=== PATIENT | female | born 1990 | race Caucasian/White ===

== ENCOUNTER 2021-11-03 14:55 | Inpatient (IN) ==
[2021-11-03] MEDS ORDERED: OXYTOCIN 30 UNITS/500 ML BAG IV PRN (16:14)
[2021-11-03] MEDS ORDERED: DINOPROSTONE 10 MG INSERT PV ONE (16:14)
[2021-11-03 16:42] LABS: Hematocrit (blood only) 43.4 % (37-47); Hemoglobin 14.7 g/dL (12.0-16.0); Mean Corpuscular Hemoglobin 28.8 pg (25-34); Mean Corpuscular Hgb Conc 33.9 g/dL (32-36); Mean Corpuscular Volume 85.1 fL (80-100); Mean Platelet Volume 10.4 fL (7.4-10.4); Platelet Count 338 K/uL (130-400); RDW Coefficient of Variation 15.3 % (11.5-14.5); RDW Standard Deviation 47.9 fL (36.4-46.3); White Blood Count 15.86 K/uL (4.8-10.8)
[2021-11-03 17:01] LABS: Alanine Aminotransferase 16 (12-78); Albumin Level 2.8 gm/dl (3.4-5.0); Aspartate Aminotransferase 13 U/L (15-37); Blood Urea Nitrogen 8 mg/dl (7-18); Calcium 9.5 mg/dl (8.5-10.1); Carbon Dioxide 23 mmol/L (21-32); Chloride 109 mmol/L (98-107); Est GFR (African American) 137.4 ml/min; Est GFR (Non-African American) 118.5 ml/min; Glucose 87 mg/dl (70-99); Potassium 4.9 mmol/L (3.5-5.1); Sodium 137 mmol/L (136-145)
[2021-11-03 17:04] LABS: Albumin Globulin Ratio 0.6 (0.9-2); Alkaline Phosphatase 211 U/L (45-117); Globulin 4.3 gm/dl (2.5-4.0); Total Protein 7.1 gm/dl (6.4-8.2)
[2021-11-03] MEDS ORDERED: BUTORPHANOL TARTRATE 1 MG/ML VIAL IV PRN (18:30)
[2021-11-03] MEDS ORDERED: ONDANSETRON INJ 2 MG/ML 2 ML VIAL IV PRN (18:30)
--- NOTE | 2021-11-03 18:41 | History & Physical Report ---
Date of Service November 03, 2021 Assessment & Plan (1) Oligohydramnios in third trimester: Plan: 31-year-old G1, P0 at 40 weeks of gestation presenting from office with oligohydramnios, heart rate reassuring with category 1 strip, Blood pressures elevated, asymptomatic, blood work including platelets liver enzymes and creatinine were normal. GBS negative, Plan to admit, monitor, Cervidil for cervical ripening. Discussed what to expect during induction and plans to have epidural for pain. All questions were answered. Admission and Anticipated Discharge Date Admission Date: November 03, 2021 History of Present Illness Chief Complaint: Oligohydramnios Primary Care Provider: NO PCP Patient is a 31-year-old G1, P0 at 14 weeks who was sent from office due to incidental finding of oligohydramnios by ultrasound. MEHUL was 2.6 cm. Patient denies leakage, trickling of fluids, contractions, vaginal bleeding. She reports good movements. Her has been complicated by, 1. Class I obesity, on low-dose aspirin, 2. Family history of Down syndrome, 3. Family history of congenital heart defect, her sister, 4. Rubella nonimmune, 5. History of genital herpes, last outbreak was over a year ago before this , she has been on Valtrex since 36 weeks. She denies itching, burning, blisters or lesions in the vulva or vagina., 6. Antepartum anemia, on iron #7 abnormal chromosomal test, Q CFF DNA was low risk for trisomy 18, trisomy 13 and sex chromosome abnormalities. 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 Patient has seen [facility] for this and recommended MicroArray testing and patient declined due to insurance not covering. Blood pressures are slightly elevated, patient denies headaches, change in vision, nausea vomiting, epigastric or right upper quadrant pain. Urine showed trace protein and platelets and liver enzymes were within normal limits. 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 See HPI for genital herpes Review of Systems as per Subjective / HPI Physical Exam Constitutional: well developed and well nourished Patient is comfortable not in acute distress Gastrointestinal (Abdomen): normal bowel sounds, soft, nontender, no hepatosplenomegaly Inspection/Auscultation: + abdomen distended Genitourinary: normal external appearance (No lesions suggesting herpes) OB Exam Abdomen: + vertex Manual OB Exam: + cervical dilation 1 cm (1 to 2 cm), + cervical effacement 70% and + station -2 OB Exam Monitor Tracing: + external uterine monitor used and + category I Cervidil is placed in posterior fornix Results & Data ([facility]) Vital Signs (Past 12 Hours) Vital Signs Temp Resp 11/03/21 17:26 36.9 C 20 Laboratory Results Lab Results 11/03/21 11/03/21 11/03/21 Range/Units 16:25 16:25 16:25 WBC 15.86 H (4.8-10.8) K/uL RBC 5.10 (4.2-5.4) M/uL Hgb 14.7 (12.0-16.0) g/dL Hct 43.4 (37-47) % MCV 85.1 (80-100) fL MCH 28.8 (25-34) pg MCHC 33.9 (32-36) g/dL RDW Std Deviation 47.9 H (36.4-46.3) fL RDW Coeff of Liyah 15.3 H (11.5-14.5) % Plt Count 338 (130-400) K/uL MPV 10.4 (7.4-10.4) fL Sodium 137 (136-145) mmol/L Potassium 4.9 (3.5-5.1) mmol/L Chloride 109 H (98-107) mmol/L Carbon Dioxide 23 (21-32) mmol/L Anion Gap 5.0 (3-11) BUN 8 (7-18) mg/dl Creatinine 0.66 (0.6-1.2) mg/dl Est Cr Clr Drug Dosing Not Reportable Est GFR ( Amer) 137.4 ml/min Est GFR (Non-Af Amer) 118.5 ml/min BUN/Creatinine Ratio 12.0 (10-20) Glucose 87 (70-99) mg/dl Calcium 9.5 (8.5-10.1) mg/dl AST 13 L (15-37) U/L ALT 16 (12-78) Alkaline Phosphatase 211 H (45-117) U/L Total Protein 7.1 (6.4-8.2) gm/dl Albumin 2.8 L (3.4-5.0) gm/dl Globulin 4.3 H (2.5-4.0) gm/dl Albumin/Globulin Ratio 0.6 L (0.9-2) SARS-CoV-2, RNA, NAAT NEGATIVE (NEGATIVE)
[2021-11-03 18:43] LABS: Bilirubin,Total 0.3 mg/dl (0.2-1)
[2021-11-03] MEDS ORDERED: PATIENT'S ALLERGY INFO NEEDS ENTERED SCH (18:45)
[2021-11-04] MEDS: LACTATED RINGER'S 1,000 ML IV PRN ×4 (00:26→22:30)
[2021-11-04] MEDS ORDERED: LABETALOL HCL 100 MG TAB PO ONE (00:42)
--- NOTE | 2021-11-04 00:51 | Obstetrical Progress Note ---
Date of Service November 04, 2021 Assessment & Plan Admission and Anticipated Discharge Date Admission Date: November 03, 2021 Subjective Patient is really evaluated. She has been feeling contractions every 3 to 5 minutes. They have been getting painful. Pain level is 6-7 out of 10. No leakage of fluid or vaginal bleeding. She reports good movements. Her blood pressures have been elevated, asymptomatic. Labs are within normal limits. heart rate category 1, toco with contractions every 3 to 5 minutes. We will start labetalol p.o. and Stadol for pain and continue to monitor closely. Results & Data ([facility]) Vital Signs (Past 12 Hours) Vital Signs Temp Pulse Resp BP 11/03/21 23:02 36.8 C 106 H 16 140/87 11/03/21 23:01 106 H 152/103 H 11/03/21 20:17 95 H 139/93 11/03/21 20:02 115 H 136/101 H 11/03/21 19:47 118 H 149/83 H 11/03/21 19:31 120 H 136/85 11/03/21 19:16 114 H 164/96 H 11/03/21 19:02 36.8 C 107 H 18 152/89 H 11/03/21 18:34 109 H 141/91 H 11/03/21 17:26 36.9 C 20
[2021-11-04] MEDS ORDERED: LABETALOL HCL 100 MG TAB PO SCH (09:00)
[2021-11-04] MEDS: miSOPROStoL 25 MCG TAB SL SCH ×4 (10:38→21:06)
--- NOTE | 2021-11-04 14:39 | Labor Progress Brief Note ---
Date of Service November 04, 2021 Subjective Patient doing well. Pain has been controlled. No other complaints at this time Constitutional: as per Subjective / HPI Assessment & Plan (1) Oligohydramnios in third trimester: Plan: Continue misoprostol 25 mcg SL q4hrs AROM and pit when >3cm Epidural if patient requests Anticipate (2) Gestational [-induced] hypertension without significant proteinuria, complicating childbirth: Plan: Based on elevated BP >4 hrs apart Non severe P:U ratio and CMP ordered Admission and Anticipated Discharge Date Admission Date: November 03, 2021 Physical Exam Physical Exam: FHT: baseline 125-130, mod variability, positive accelerations, no decelerations, category 1 tracing Tocometer: Contractions every 6 to 7 minutes Cervix: 2/60/-3 cephalic Results & Data ([facility]) Vital Signs (Past 12 Hours) Vital Signs Temp Pulse Resp BP 11/04/21 14:11 36.9 C 98 H 20 148/84 H 11/04/21 12:11 108 H 138/86 11/04/21 10:03 105 H 134/90 11/04/21 07:19 36.1 C L 99 H 20 133/94 11/04/21 04:08 36.5 C 100 H 16 136/78
[2021-11-04 15:24] LABS: Alanine Aminotransferase 19 (12-78); Albumin Level 2.5 gm/dl (3.4-5.0); Aspartate Aminotransferase 12 U/L (15-37); BUN Creatinine Ratio 12.2 (10-20); Blood Urea Nitrogen 8 mg/dl (7-18); Calcium 9.3 mg/dl (8.5-10.1); Carbon Dioxide 20 mmol/L (21-32); Chloride 109 mmol/L (98-107); Est GFR (African American) 140.2 ml/min; Glucose 141 mg/dl (70-99); Potassium 4.3 mmol/L (3.5-5.1); Sodium 138 mmol/L (136-145)
[2021-11-04 15:27] LABS: Albumin Globulin Ratio 0.6 (0.9-2); Alkaline Phosphatase 192 U/L (45-117); Bilirubin,Total 0.3 mg/dl (0.2-1); Globulin 4.3 gm/dl (2.5-4.0); Total Protein 6.8 gm/dl (6.4-8.2)
[2021-11-04] MEDS ORDERED: Nursing to Pharmacy Communication SCH (16:15)
[2021-11-04] MEDS ORDERED: ePHEDrine sulfate 50 MG/ML AMP ONE (19:29)
[2021-11-04] MEDS ORDERED: fentaNYL citrate 100 MCG/2 ML VIAL ONE (19:29)
[2021-11-04] MEDS ORDERED: SODIUM CHLORIDE 0.9% INJ 10 ML VIAL ONE (19:29)
[2021-11-04] MEDS ORDERED: BUPIVACAINE 0.25% 30 ML VIAL ONE (19:29)
[2021-11-04] MEDS ORDERED: fentaNYL 2MCG/ML ROPIVACAINE 1.25MG/ML 100 ML BAG EPI ONE (19:30)
[2021-11-04] MEDS ORDERED: ONDANSETRON INJ 2 MG/ML 2 ML VIAL IV PRN (19:39)
[2021-11-04] MEDS ORDERED: NALBUPHINE HCL INJ 10 MG/ML AMP IV PRN (19:39)
[2021-11-04] MEDS ORDERED: fentaNYL 2MCG/ML ROPIVACAINE 1.25MG/ML 100 ML BAG EPI PRN (19:39)
[2021-11-04] MEDS ORDERED: diphenhydrAMINE 50 MG/ML VIAL IV PRN (19:39)
[2021-11-04] MEDS ORDERED: ePHEDrine sulfate 50 MG/ML AMP IV PRN (19:39)
[2021-11-04] MEDS ORDERED: NALOXONE HCL 0.4 MG/1 ML VIAL/CARP IV PRN (19:39)
[2021-11-04] MEDS ORDERED: NALOXONE HCL 1 MG in SODIUM CHLORIDE 0.9% 1000ML 1,000 ML IV PRN (19:39)
--- NOTE | 2021-11-04 19:47 | Anesthesiology Consultation ---
Date of Service November 04, 2021 Assessment & Plan Chart Review Chart Review: Patient NOT seen in Pre Admission Testing and Acceptable Risk for Labor Epidural Consults Requested none ASA ASA2 Proposed Anesthesia Anesthesia Type: Labor Epidural and CSE Risk / Benefits Reviewed With: PT / POA / Parent / Guardian, Accepts Plan and Informed Consent Obtained History Height/Weight Weight: 85.729 kg Allergies Allergy/AdvReac Type Severity Reaction Status Date / Time penicillin G Allergy Intermediate Rash Verified 11/04/21 07:16 walnut Allergy Intermediate Rash Verified 11/04/21 07:16 Medications Home Medications Medication Instructions Recorded Confirmed Last Taken aspirin 81 mg tablet 81 mg PO DAILY 11/03/21 11/03/21 11/02/21 22:00 ferrous sulfate 325 mg (65 mg 325 mg PO DAILY 11/03/21 11/03/21 11/02/21 22:00 iron) tablet (Iron (ferrous sulfate)) prenat.vits,montrell,[id number]-[id number] 1 tab PO DAILY 11/03/21 11/03/21 11/02/21 22:00 valacyclovir 500 mg tablet 500 mg PO DAILY 11/03/21 11/03/21 11/02/21 22:00 (Valtrex) Active Medications Generic Name Dose Route Start Last Admin Trade Name Freq PRN Reason Stop Dose Admin Butorphanol Tartrate 1 mg 11/03/21 18:30 11/04/21 00:25 Butorphanol Tartrate 1 Mg/Ml Vial IV 12/03/21 18:29 1 mg Q3HWA PRN Administration Pain Lactated Ringer's 1,000 mls @ 125 mls/hr 11/03/21 16:14 11/04/21 19:27 Lr IV 11/05/21 16:13 999 mls/hr .Q8H PRN Infusion L&D Protocol Protocol Misoprostol 25 mcg 11/04/21 19:00 11/04/21 19:35 Misoprostol 25 Mcg Tab SL 12/04/21 07:59 Not Given Q4H FAITH NPO Date Last Intake of Fluids: 11/04/21 Time Last Intake of Fluids: 17:00 Date Last Intake of Solids: 11/04/21 Time Last Intake of Solids: 14:00 Exercise / Class Metabolic Activity II 4-5 Yardwork/Stairs/Walk up hill Past Anesthesia History No Hx of Anesthesia Complications and No Family Hx of Anesthesia Complications History of PONV No Hx of PONV and No Hx of Motion Sickness Social History Smoking Status: Former smoker Hx Alcohol Use: No Hx Substance Use: No substance use type: does not use Last Used Substance: Unknown Review of Systems no chest pain or sob Physical Exam Vital Signs Last Vital Signs Temp 36.5 C 11/04/21 19:10 Pulse 112 H 11/04/21 19:44 Resp 20 11/04/21 19:10 BP 150/94 H 11/04/21 19:09 Pulse Ox 99 11/04/21 19:44 ENMT Mouth: no TMJ abnormality Thyromental Distance: > or= 3.5 Finger Breadths Mallampati Class: II Neck normal visual inspection Respiratory normal respiratory effort Auscultation: lungs clear to auscultation bilaterally Cardiovascular Rate/Rhythm: regular rate and regular rhythm Musculoskeletal Spine: normal cervical ROM Neurologic moves all extremities Psychiatric Orientation: alert and oriented x 3 Testing Laboratory Results 11/03/21 16:25 11/04/21 14:56
[2021-11-05] MEDS ORDERED: OXYTOCIN 30 UNITS/500 ML BAG IV PRN ×3 (01:28→12:06)
[2021-11-05] MEDS: miSOPROStoL 25 MCG TAB SL SCH ×4 (01:29→18:32)
--- NOTE | 2021-11-05 06:30 | Labor Progress Brief Note ---
Date of Service November 05, 2021 Subjective Patient doing well. Pain well controlled on epidural. No other complaints at this time Constitutional: as per Subjective / HPI Assessment & Plan (1) Oligohydramnios in third trimester: Plan: Cotinue oxytocin for augenatation Anticipate (2) Gestational [-induced] hypertension without significant proteinuria, complicating childbirth: Plan: Based on elevated BP >4 hrs apart Non severe BP If severe with treat and start mag Admission and Anticipated Discharge Date Admission Date: November 03, 2021 Physical Exam Physical Exam: FHT: baseline 155, mod variability, positive accelerations, no decelerations, category 1 tracing Tocometer: q 2 min pit at 6 units Cervix: 3/70/-2 AROM with scant blood tinged fluid, IUPC placed. No cord felt Results & Data ([facility]) Vital Signs (Past 12 Hours) Vital Signs Temp Pulse Resp BP Pulse Ox 11/05/21 06:24 105 H 97 11/05/21 06:19 112 H 96 11/05/21 06:16 102 H 127/75 11/05/21 06:14 120 H 98 11/05/21 06:09 108 H 96 11/05/21 06:04 98 H 96 11/05/21 06:00 108 H 18 125/75 11/05/21 05:59 106 H 96 11/05/21 05:54 97 H 95 11/05/21 05:49 105 H 96 11/05/21 05:46 95 H 116/60 11/05/21 05:44 92 H 95 11/05/21 05:39 103 H 97 11/05/21 05:34 90 95 11/05/21 05:30 92 H 18 118/60 11/05/21 05:29 90 95 11/05/21 05:24 90 95 11/05/21 05:19 91 H 95 11/05/21 05:15 89 119/59 L 11/05/21 05:14 90 95 11/05/21 05:09 100 H 95 11/05/21 05:04 95 H 95 11/05/21 05:00 98 H 18 115/57 L 11/05/21 04:59 94 H 95 11/05/21 04:54 93 H 97 11/05/21 04:49 104 H 95 11/05/21 04:46 95 H 115/61 11/05/21 04:44 98 H 94 11/05/21 04:39 102 H 95 11/05/21 04:34 102 H 94 11/05/21 04:30 93 H 18 122/57 L 11/05/21 04:29 97 H 94 11/05/21 04:24 96 H 95 11/05/21 04:19 96 H 95 11/05/21 04:15 97 H 116/60 11/05/21 04:14 93 H 95 11/05/21 04:09 100 H 95 11/05/21 04:04 100 H 95 11/05/21 04:00 117 H 18 131/72 11/05/21 03:59 99 H 95 11/05/21 03:54 95 H 95 11/05/21 03:49 95 H 95 11/05/21 03:45 94 H 130/59 L 11/05/21 03:44 96 H 95 11/05/21 03:39 99 H 95 11/05/21 03:34 100 H 95 11/05/21 03:30 93 H 129/68 11/05/21 03:29 104 H 97 11/05/21 03:24 99 H 94 11/05/21 03:19 101 H 93 11/05/21 03:15 101 H 119/67 11/05/21 03:14 97 H 95 11/05/21 03:09 102 H 96 11/05/21 03:04 99 H 96 11/05/21 03:01 100 H 132/78 11/05/21 02:59 109 H 96 11/05/21 02:54 114 H 98 11/05/21 02:49 109 H 97 11/05/21 02:46 107 H 140/70 11/05/21 02:44 122 H 97 11/05/21 02:39 128 H 97 11/05/21 02:34 124 H 97 11/05/21 02:31 120 H 120/72 11/05/21 02:30 36.8 C 18 11/05/21 02:29 103 H 97 11/05/21 02:24 95 H 95 11/05/21 02:19 96 H 94 11/05/21 02:16 110 H 118/65 11/05/21 02:14 97 H 95 11/05/21 02:09 99 H 95 11/05/21 02:04 98 H 95 11/05/21 02:00 100 H 18 114/61 11/05/21 01:59 100 H 95 11/05/21 01:54 98 H 95 11/05/21 01:49 100 H 94 11/05/21 01:45 100 H 119/69 11/05/21 01:44 105 H 96 11/05/21 01:39 113 H 96 11/05/21 01:34 113 H 95 11/05/21 01:30 121 H 18 124/73 11/05/21 01:29 118 H 97 11/05/21 01:24 122 H 97 11/05/21 01:19 106 H 95 11/05/21 01:16 97 H 118/59 L 11/05/21 01:14 101 H 95 11/05/21 01:09 98 H 95 11/05/21 01:04 108 H 95 11/05/21 01:00 109 H 18 116/57 L 11/05/21 00:59 105 H 93 11/05/21 00:54 104 H 95 11/05/21 00:49 100 H 94 11/05/21 00:45 107 H 109/55 L 11/05/21 00:44 103 H 94 11/05/21 00:39 108 H 95 11/05/21 00:34 108 H 94 11/05/21 00:30 95 H 18 116/59 L 11/05/21 00:29 99 H 95 11/05/21 00:24 101 H 95 11/05/21 00:19 110 H 95 11/05/21 00:15 100 H 118/66 11/05/21 00:14 111 H 96 11/05/21 00:09 115 H 95 11/05/21 00:04 120 H 95 11/05/21 00:00 113 H 18 115/69 11/04/21 23:59 111 H 95 11/04/21 23:54 107 H 96 11/04/21 23:49 120 H 96 11/04/21 23:45 110 H 124/72 11/04/21 23:44 130 H 95 11/04/21 23:39 133 H 95 11/04/21 23:35 127 H 94 11/04/21 23:34 131 H 96 11/04/21 23:31 114 H 139/92 11/04/21 23:30 18 11/04/21 23:29 122 H 96 11/04/21 23:28 126 H 94 11/04/21 23:24 131 H 95 11/04/21 23:20 36.8 C 11/04/21 23:19 145 H 96 11/04/21 23:14 147 H 97 11/04/21 23:09 123 H 97 11/04/21 23:04 127 H 95 11/04/21 23:00 126 H 18 153/75 H 11/04/21 22:59 131 H 95 11/04/21 22:54 116 H 96 11/04/21 22:49 110 H 95 11/04/21 22:45 122 H 138/73 11/04/21 22:44 124 H 95 11/04/21 22:39 118 H 95 11/04/21 22:34 117 H 95 11/04/21 22:32 114 H 94 11/04/21 22:30 136 H 18 147/81 H 11/04/21 22:29 111 H 95 11/04/21 22:26 115 H 94 11/04/21 22:24 110 H 95 11/04/21 22:20 108 H 94 11/04/21 22:19 118 H 95 11/04/21 22:15 118 H 142/77 H 11/04/21 22:14 124 H 95 11/04/21 22:09 116 H 96 11/04/21 22:04 113 H 94 11/04/21 22:01 110 H 94 11/04/21 22:00 115 H 18 133/80 11/04/21 21:59 114 H 96 11/04/21 21:56 111 H 94 11/04/21 21:54 111 H 95 11/04/21 21:50 106 H 94 11/04/21 21:49 114 H 95 11/04/21 21:45 115 H 132/80 11/04/21 21:44 111 H 96 11/04/21 21:42 112 H 93 11/04/21 21:39 107 H 95 11/04/21 21:34 108 H 95 11/04/21 21:30 108 H 18 143/86 H 11/04/21 21:29 114 H 97 11/04/21 21:24 111 H 97 11/04/21 21:19 122 H 98 11/04/21 21:15 127 H 145/98 H 11/04/21 21:14 122 H 99 11/04/21 21:09 113 H 99 11/04/21 21:04 114 H 100 11/04/21 21:00 100 H 18 137/88 11/04/21 20:59 92 H 99 11/04/21 20:54 93 H 98 11/04/21 20:49 127 H 99 11/04/21 20:45 90 125/83 11/04/21 20:44 98 H 97 11/04/21 20:39 94 H 98 11/04/21 20:37 103 H 91 11/04/21 20:34 101 H 98 11/04/21 20:30 101 H 18 128/79 11/04/21 20:29 99 H 97 11/04/21 20:24 96 H 98 11/04/21 20:19 110 H 99 11/04/21 20:14 115 H 139/80 98 11/04/21 20:12 114 H 149/94 H 11/04/21 20:10 108 H 144/82 H 11/04/21 20:09 108 H 157/94 H 99 11/04/21 20:06 103 H 152/96 H 11/04/21 20:04 100 H 152/97 H 99 11/04/21 20:02 106 H 169/104 H 11/04/21 20:00 102 H 168/106 H 11/04/21 19:59 116 H 97 11/04/21 19:54 116 H 98 11/04/21 19:49 105 H 99 11/04/21 19:44 112 H 99 11/04/21 19:39 113 H 100 11/04/21 19:10 36.5 C 20 11/04/21 19:09 90 150/94 H 11/04/21 19:08 103 H 167/107 H 11/04/21 19:06 36.5 C 100 H 18 172/103 H
[2021-11-05] MEDS: LACTATED RINGER'S 1,000 ML IV PRN (06:33)
[2021-11-05] MEDS ORDERED: SUPERCREAM 0.870% 15 GM JAR EXT PRN (12:06)
[2021-11-05] MEDS ORDERED: bisacodyL 10 MG SUPP PR PRN (12:06)
[2021-11-05] MEDS ORDERED: HYDROCORTISONE ACETATE 25 MG SUPP PR PRN (12:06)
[2021-11-05] MEDS ORDERED: BENZOCAINE 20% AER SPR 82.5 GM CAN EXT PRN (12:06)
[2021-11-05] MEDS ORDERED: ACETAMINOPHEN 325 MG TAB PO PRN (12:06)
--- NOTE | 2021-11-05 12:12 | Delivery Summary ---
Vaginal Delivery Summary Date of Service November 05, 2021 Vaginal Delivery Summary Delivery Note live femal over intact perineum with thick meconium suctioned after head delivered. Baby to nursery nurse. Apgars and weight pending. Cord obtained for ABG's followed by cord blood. Spontaneous delivery of meconium stained palcenta intact. No tears. EBL 200 ml. Final sponge and instrument count are correct. Mom stable and baby to nursery.
[2021-11-05 12:36] LABS: CO2 Cord Arterial Blood 73 mmHg (39.1-73.5); HCO3 Cord Arterial Blood 18 mmol/L (19.7-28.5); PO2 Cord Arterial Blood 26 mmHg (4.1-31.7)
[2021-11-05 12:45] LABS: Oxygen Sat Cord Arterial Blood < 60.0 % (<60)
[2021-11-05] MEDS: IBUPROFEN 600 MG TAB PO PRN ×2 (12:55→17:17)
--- NOTE | 2021-11-05 13:48 | Anesthesia Procedure Note ---
Date of Service November 05, 2021 Anesthesia Post Epidural Note Vital Signs Vital Signs: Temp Pulse Resp BP Pulse Ox 36.9 C 113 H 20 145/84 H 97 11/05/21 06:30 11/05/21 13:46 11/05/21 07:30 11/05/21 13:46 11/05/21 11:59 Pain Intensity Bilateral Abdomen: Pain Intensity: 8 Notes Mental Status: alert / awake / arousable Nausea / Vomiting: adequately controlled Pain: adequately controlled Airway Patency, RR, SpO2: stable & adequate BP & HR: stable & adequate Hydration State: stable & adequate Neuraxial Anesthesia: was administered and sensory block is resolving Anesthetic Complications: no major complications apparent and Pt Satisfied with anesthetic care Epidural: Removed without complications and With tip intact
[2021-11-05] MEDS ORDERED: Nursing to Pharmacy Communication SCH (18:45)
[2021-11-05] MEDS: DOCUSATE SODIUM 100 MG CAP PO SCH (20:33)
[2021-11-06] MEDS: IBUPROFEN 600 MG TAB PO PRN ×4 (01:50→23:16)
--- NOTE | 2021-11-06 07:17 | Obstetrical Progress Note ---
Date of Service November 06, 2021 Assessment & Plan (1) Gestational [-induced] hypertension without significant prote inuria, complicating childbirth: Based on elevated BP >4 hrs apart Non severe BP If severe with treat and start mag (2) Normal course: Continue routine PP care Anticipate d/c home tomorrow if doing well Subjective Ambulation: ambulating normally Voiding: no voiding problems Passing Gas:: Yes Diet Tolerance:: regular diet Lochia:: Moderate Feeding Type:: bottle feeding Current Pain Level(1-10): 2 Patient doing well, no complaints Constitutional: + as per Subjective / HPI Physical Exam Constitutional WD/WN, vitals as above Respiratory normal respiratory effort, lungs clear to auscultation Cardiovascular RRR, no murmur, no edema Gastrointestinal (Abdomen) normal bowel sounds, soft, nontender, no hepatosplenomegaly fundus below U Results & Data ([facility]) Vital Signs (Past 12 Hours) Vital Signs Temp Pulse Resp BP Pulse Ox 11/06/21 04:00 36.6 C 99 H 16 130/85 98 11/06/21 00:00 36.7 C 103 H 16 140/99 98 11/05/21 20:00 36.5 C 96 H 16 137/89 96
[2021-11-06 07:32] LABS: Hematocrit (blood only) 36.5 % (37-47); Hemoglobin 12.2 g/dL (12.0-16.0); Mean Corpuscular Hemoglobin 29.3 pg (25-34); Mean Corpuscular Hgb Conc 33.4 g/dL (32-36); Mean Corpuscular Volume 87.5 fL (80-100); Mean Platelet Volume 10.1 fL (7.4-10.4); Platelet Count 265 K/uL (130-400); RDW Coefficient of Variation 15.4 % (11.5-14.5); RDW Standard Deviation 49.4 fL (36.4-46.3); Red Blood Count 4.17 M/uL (4.2-5.4); White Blood Count 14.93 K/uL (4.8-10.8)
[2021-11-06] MEDS: DOCUSATE SODIUM 100 MG CAP PO SCH ×2 (07:58→20:22)
[2021-11-06] MEDS ORDERED: FERROUS SULFATE 325 MG TAB PO SCH (08:00)
[2021-11-06] MEDS ORDERED: PRENATAL VITAMIN 1 TAB PO SCH (08:00)
[2021-11-06] MEDS: FERROUS SULFATE 325 MG TAB PO SCH (08:36)
[2021-11-06] MEDS: PRENATAL VITAMIN 1 TAB PO SCH (08:36)
[2021-11-06] MEDS: ASPIRIN 81 MG ECTAB PO SCH (08:36)
[2021-11-06] MEDS ORDERED: DIPHTHERIA/TETANUS/PERTUSSIS 0.5 ML SYR/VIAL IM ONE (09:00)
[2021-11-06] MEDS ORDERED: bisacodyL 5 MG TABEC PO SCH (20:00)
[2021-11-06 23:37] VITALS: O2SAT 95
[2021-11-07 06:52] LABS: Hematocrit (blood only) 34.6 % (37-47); Hemoglobin 11.7 g/dL (12.0-16.0)
[2021-11-07] MEDS: DOCUSATE SODIUM 100 MG CAP PO SCH (08:41)
[2021-11-07] MEDS: PRENATAL VITAMIN 1 TAB PO SCH (08:42)
[2021-11-07] MEDS: IBUPROFEN 600 MG TAB PO PRN (08:42)
[2021-11-07] MEDS: ASPIRIN 81 MG ECTAB PO SCH (08:42)
[2021-11-07] MEDS: FERROUS SULFATE 325 MG TAB PO SCH (08:42)
[2021-11-07 09:33] VITALS: PULSE 104; TEMP 98.1
--- NOTE | 2021-11-07 11:06 | Obstetrical Progress Note ---
Date of Service November 07, 2021 Subjective Ambulation: ambulating normally Voiding: no voiding problems Passing Gas:: Yes Diet Tolerance:: regular diet Lochia:: Small Feeding Type:: breast feeding Current Pain Level(1-10): 0 doing well. plans for d/c Physical Exam Constitutional WD/WN, vitals as above comfortable abdomen soft and non-tender. fundus firm. no edeam. neg Lucille's. discharged today Results & Data ([facility]) Vital Signs (Past 12 Hours) Vital Signs Temp Pulse Resp BP 11/07/21 07:45 36.7 C 104 H 18 132/81 11/07/21 03:15 36.9 C 91 H 18 134/88 Laboratory Results Laboratory Results - last 72 hr 11/04/21 11/05/21 11/06/21 14:56 Unknown 07:19 WBC 14.93 H RBC 4.17 L Hgb 12.2 Hct 36.5 L MCV 87.5 MCH 29.3 MCHC 33.4 RDW Std Deviation 49.4 H RDW Coeff of Liyah 15.4 H Plt Count 265 MPV 10.1 Cord ABG pH 7.00 L Cord ABG pCO2 73 Cord ABG pO2 26 Cord ABG HCO3 18 L Cord ABG Base Excess -15.0 L Cord ABG O2 Sat < 60.0 Barometric Pressure 729.5 Blood Gas Comments EPSTEIN Sodium 138 Potassium 4.3 Chloride 109 H Carbon Dioxide 20 L Anion Gap 9.0 BUN 8 Creatinine 0.62 Est Cr Clr Drug Dosing Not Reportable Est GFR ( Amer) 140.2 Est GFR (Non-Af Amer) 121.0 BUN/Creatinine Ratio 12.2 Glucose 141 H Calcium 9.3 Total Bilirubin 0.3 AST 12 L ALT 19 Alkaline Phosphatase 192 H Total Protein 6.8 Albumin 2.5 L Globulin 4.3 H Albumin/Globulin Ratio 0.6 L 11/07/21 06:23 WBC RBC Hgb 11.7 L Hct 34.6 L MCV MCH MCHC RDW Std Deviation RDW Coeff of Liyah Plt Count MPV Cord ABG pH Cord ABG pCO2 Cord ABG pO2 Cord ABG HCO3 Cord ABG Base Excess Cord ABG O2 Sat Barometric Pressure Blood Gas Comments Sodium Potassium Chloride Carbon Dioxide Anion Gap BUN Creatinine Est Cr Clr Drug Dosing Est GFR ( Amer) Est GFR (Non-Af Amer) BUN/Creatinine Ratio Glucose Calcium Total Bilirubin AST ALT Alkaline Phosphatase Total Protein Albumin Globulin Albumin/Globulin Ratio
[2021-11-07 11:17] VITALS: BP 130/94
[2021-11-07] MEDS ORDERED: MEASLES, MUMPS & RUBELLA VIRUS VIAL SQ ONE (11:30)
== END 2021-11-07 13:30 | disposition home or self-care (01) | DRG 807 ==
LOC: OPB 14:55 → 4S2 14:59 → 4S1 17:17 → 4S2 11-05 15:42